=== PATIENT | female | born 1965 | race Hispanic/Latino ===

== ENCOUNTER 2016-08-06 07:44 | Emergency (ER) | payer OTHER ==
[~2016-08-06] VITALS: Ht 154.9 cm; Wt 90.9 kg
[~2016-08-06 07:44] MED LIST: CALC500T3 PO; CHOL5000 PO; DIPH1TAB PO; DOXY100C43 PO; FLUC150T3 PO
[2016-08-06 07:45] VITALS: BP 188/107; PULSE 61; RESP 18; O2SAT 96
[2016-08-06] MEDS ORDERED: 0.9% Sodium Chloride 1,000 ML IV ONE (08:03)
[2016-08-06] MEDS ORDERED: HYDROcodone-APAP 5-325 mg Tablet PO ONE (08:05)
--- NOTE | 2016-08-06 08:21 | ED.REPORT ---
HPI-Abd Pain F 40 and Over Date of Service Aug 06, 2016 ED Provider: Peter Mcmahon DO History of Present Illness: Patient is a 50 y.o. F past medical history of roseasa, otherwise healthy. Presents with one day history of abdominal pain localized to left flank that began upper left quadrant, awoke patient from sleep and has no migrated from upper left quadrant to left groin. Associated with increased urination, pain in left groin and flank increased with urination. Denies fever, chills, nausea, vomiting. Patient is perimenopausal, she states she has periods approximately every other month, LMP last month. Nursing Notes Stated Complaint: LEFT SIDE ABDOMINAL PAIN Chief Complaint: Female Abdominal Pain Nursing Notes Reviewed: Yes Allergies: Coded Allergies: Penicillins (Unverified Allergy, Severe, hives, 09/29/13) amoxicillin (Verified Allergy, Intermediate, HIVES, 01/11/16) Scheduled Calcium Carbonate (Calcium Carbonate) 500 Mg Tablet 1,000 MG PO DAILY Cholecalciferol (Vitamin D3) (Vitamin D3) 5,000 Unit Capsule 5,000 UNIT PO QW Take 5,000U weekly, and then every 15 days. Ciprofloxacin (Ciprofloxacin) 500 Mg Tablet 500 MG PO BID Doxycycline Monohyd (Doxycycline Monohyd) 100 Mg Capsule 100 MG PO DAILY Fluconazole (Fluconazole) 150 Mg Tablet 150 MG PO DAILY Metronidazole (Metronidazole) 500 Mg Tablet 500 MG PO TID Scheduled PRN Diphenoxylate/Atropine 2.5-0.025 mg (Lomotil 2.5-0.025 mg) 1 Each Tablet 2 TABLET PO QID PRN PRN For Diarrhea or Loose Stool General Time Seen by MD: 08:02 Chief Complaint Abdominal pain, Flank pain left, Inguinal pain left Hx Obtained From: Patient Sudden in Onset?: Yes Onset Occurred: 5 - 8 hours ago Symptom Duration: Since onset Location: : LLQ Radiation: : Flank left Severity: Current: Pain level 6 out of 10 Severity: Maximum: Pain level 8 out of 10 Similar Sx Previous: No Past Medical History Past Medical History Rosacea Past Surgical History Bladder sling Reports: Cholecystectomy Smoking History Former Smoker Social History Alcohol Use: Denies alcohol use Drug Use: Denies drug use Ambulatory Status Independent Review of Systems Basic Review of Systems Eyes: Vision NL, No discharge ENT: Hearing NL, No pain, No nasal congestion, No pharyngeal pain Hematologic: No bleeding, No bruising Skin: No bruising, No rash, No itch Neurologic: NL mental status, No weakness, No numbness Constitutional: Denies: Chills, Fever GI: Reports: Abdominal pain, Denies: Nausea, Vomiting Female: Reports: Dysuria, Flank pain, Urinary frequency, Denies: Hematuria, Pelvic pain, Vaginal bleeding - abnl, Vaginal discharge Complete sys rev & neg: except as marked. Physical Exam Vital Signs Vital Signs (First) Date Time Temp Pulse Resp B/P Pulse Ox O2 Delivery O2 Flow Rate FiO2 08/06/16 07:45 36.4 61 18 188/107 96 Room Air Initial VS: Reviewed Head / Eyes: Atraumatic, Normocephalic, PERRL ENT: Mucous membranes moist, Conjunctiva normal, No scleral icterus Neck: Supple, Non-tender, Full range of motion Lymphatic: No lymphadenopathy Extremities: Vascular intact, Neuro intact, No swelling, No tenderness Skin: Warm, Dry, No cyanosis Neurologic: Alert, Oriented, Nonfocal Psychiatric: Mood/affect normal, Behavior normal, Normal thought content General/Constitutional: Awake, Alert Respiratory / Chest: Breath sounds NL, Breath sounds = bilat, No respiratory distress, No rales, No rhonchi, No wheezing, No stridor Cardiovascular: Heart rate NL, Regular rhythm, Heart sounds NL, Peripheral circulation NL Abdomen: Soft, Non-tender, McBurney's non-tender, No guarding, No rebound, BS normoactive, No distention, No hernia, No palpable mass, No pulsatile mass Trauma - Abdomen Specific: Negative: Kingsley's sign, Huddleston Arias's sign Interpretation & Diagnostics Lab Results Interpretation Result Diagram: 08/06/16 0902 08/06/16 0902 Test 08/06/16 08:01 08/06/16 09:02 Urine Color Straw (YELLOW) Urine Appearance Hazy (CLEAR,HAZY) Urine pH 6.5 (5.0-8.0) Urine Specific K[place]ler 1.015 (1.003-1.035) Urine Protein Negativemg/dL (NEG,TRACE) Urine Glucose (UA) Negativemg/dL (NEGATIVE) Urine Ketones Negativemg/dL (NEGATIVE) Urine Occult Blood Negative (NEGATIVE) Urine Nitrite Negative (NEGATIVE) Urine Bilirubin Negative (NEGATIVE) Urine Urobilinogen Normalmg/dL (NORMAL) Urine Leukocyte Esterase Small (NEGATIVE) Urine RBC 0-2/hpf (0-2) Urine WBC 6-10/hpf (0-5) Urine Epithelial Cells Occasional/hpf (NONE-MOD) Urine Crystals None seen (NONE SEEN) Urine Bacteria Few/hpf (NONE-FEW) Urine Hyaline Casts None/lpf (NONE) Urine Granular Casts None seen (NONE SEEN) Urine Waxy Casts None seen (NONE SEEN) Urine Red Blood Cell Casts None seen (NONE SEEN) Urine White Blood Cell Casts None seen (NONE SEEN) Urine Mucus None seen (None Seen) Urine Trichomonas None seen (NONE SEEN) Urine Yeast None (NONE SEEN) Urinalysis Comment None Urine Culture Reflexed Indicated White Blood Count 10.8th/mm3 (3.8-10.1) Red Blood Count 4.81mil/mm3 (3.90-5.20) Hemoglobin 14.3g/dL (12.0-15.6) Hematocrit 42.0% (35.0-46.0) Mean Corpuscular Volume 87.3fL (81-100) Mean Corpuscular Hemoglobin 29.7pg (27.0-35.0) Mean Corpuscular Hemoglobin Concent 34.0% (32.0-37.0) Red Cell Distribution Width 13.5% (12.3-15.4) Platelet Count 254bil/L (150-400) Sodium Level 137mEq/L (134-144) Potassium Level 4.3mEq/L (3.5-5.2) Chloride Level 103mEq/L (97-108) Carbon Dioxide Level 21mmol/L (18-29) Blood Urea Nitrogen 10mg/dL (6-24) Creatinine 0.43mg/dL (0.57-1.00) Estimat Glomerular Filtration Rate 223mL/min (>59) Glucose Level 108mg/dL (60-99) Calcium Level 8.7mg/dL (8.5-10.1) Total Bilirubin 0.5mg/dL (0.0-1.2) Aspartate Amino Transf (AST/SGOT) 26U/L (0-50) Alanine Aminotransferase (ALT/SGPT) 16U/L (0-32) Alkaline Phosphatase 79U/L (25-150) Total Protein 7.0g/dL (6.4-8.4) Albumin 3.7g/dL (3.4-5.0) Re-Eval/Medical Decision Med Decision/Clinical Course 50 y.o. F with 8 hour onset of left sided abdominal pain that began in the epigastrum, migrated to left flank and left groin. Physical exam negative for CVA tenderness. DDx Kidney stone, UTI, Ovarian torsion, ovarian cyst, ovarian abscess, PID, pancreatitis, diverticulitis CT scan showed evidence of Diverticulitis Give 1 L bolus NS IV Ketorlac for pain PO Hydrocodone 5-[address] KUB Order UA + WBC, + leukocyte esterase, - occult blood, - RBC Order CBC WCt 10.[address] Scan showed evidence of Diverticulitis Start Ciprofloxacin (500 mg PO every 12 hours) plus metronidazole (500 mg PO every 8 hours) Patient meets criteria for discharge and outpatient treatment with close outpatient follow up. Re-Evaluation/Progress : Time of Eval: 08:36 )( Re-Eval Abdomen: Soft, No guarding, Tenderness (lower left quadrant) Patient Status: Condition unchanged, Pain improved Counseled Regarding: Diagnosis, Lab results, Need for follow-up, When/why to return to ED Discharge & Departure Primary Impression: Diverticulitis Diverticulitis site: large intestine Diverticulitis bleeding: without bleeding Diverticulitis complication: without perforation or abscess Qualified Code: K57.32 - Diverticulitis of large intestine without perforation or abscess without bleeding Additional Impression: Abdominal pain Abdominal location: left lower quadrant Qualified Code: R10.32 - Left lower quadrant pain Ruled Out: Kidney stone Disposition: Home Discharge Condition All VS Reviewed: Yes Condition: Stable Patient Instructions: Diverticulitis (DC) Additional Instructions: During you visit to [facility] Emergency Department we obtained blood work for infectious markers, hemoglobin levels, and electrolytes. We obtained high resolution imaging of your abdomen this showed signs of Diverticulitis an infection of your colon. All your lab values together with imaging confirmed the presence of this infection. At present time this infection is small enough without significant spread to be treated with antibiotic therapy as an outpatient. Your vital signs were stable and safe for discharge. We will send you home with - 10 day course of Antibiotics Ciprofloxacin (500 mg by mouth every 12 hours ) plus Flagyl (500 mg by mouth every 8 hours) - Pain medications Hydrocodone (5-325 mg by mouth every 6 hours for pain count 10) When taking Percocet pain medications DO NOT drive, DO NOT drink alcohol, DO NOT take extra acetaminophen (Tylenol). Maintain adequate hydration. Handout for Diverticulitis given All questions answered. Do not hesitate to call emergency services or your primary care physician if you experience any of the following. - High unrelenting fevers. - Uncontrolled vomiting. - Severe hypertension. - Syncope or loss of consciousness. - Chest pain or severe shortness of breath. Follow up with your primary care physician in 1 weeks time following your emergency department visit for medication checks and general well-being. Referrals: Roxanne Estes MD (PCP) Attending Statement The patient was seen and examined together with Dr. Fuentes on 08/06/16 and I have added additional information to the note above. copies to: Roxanne Estes MD, AARON J DO Aug 06, 2016 08:03 Peter Mcmahon DO Aug 06, 2016 10:18
[2016-08-06 08:23] LABS: APPEARANCE,URINE HAZY (CLEAR,HAZY); COLOR,URINE STRAW (YELLOW); PH,URINE 6.5 (5.0-8.0)
[2016-08-06 08:24] LABS: OCCULT BLOOD,URINE NEGATIVE (NEGATIVE); UROBILINOGEN,URINE NORMAL (NORMAL)
[2016-08-06 09:13] LABS: Mean Corpuscular Hemoglobin 29.7 pg (27.0-35.0); Mean Corpuscular Volume 87.3 fL (81-100)
--- NOTE | 2016-08-06 09:42 | DRSVH ---
PROCEDURE: CT KUB ([id number]) INDICATIONS: L sided abdominal pain TECHNIQUE: Noncontrast 5 mm thick sections acquired from the diaphragms to the symphysis. 5 mm thick coronal an d sagittal reformats were then performed. For radiation dose reduction, the following was used: aut omated exposure control, adjustment of mA and/or kV according to patient size. COMPARISON: None. FINDINGS: Image quality: Excellent. Lung bases: Lung bases are clear. Heart size is normal. Urinary system: Both kidneys are normal in size. No kidney stones. No hydronephrosis or perinephri c fat stranding. Both ureters appear non-dilated throughout their expected courses. Bladder wall th ickness is normal; no calcified bladder stones. Other solid organs: Liver and spleen are normal in size. Gallbladder has been recommended. Pancrea s is normal in contours. No adrenal nodules. Peritoneum and bowel: Unenhanced bowel loops are nonobstructed. There is a thickened loop of distal descending/proximal sigmoid colon demonstrating thickening and inflammatory change. Diverticula are p resent. There is no free air or pericolonic fluid abscess. Nodes and vessels: No retroperitoneal or mesenteric adenopathy by size criteria. Aorta and inferior vena cava are normal in caliber. Abdominal wall: No ventral hernias. Pelvis: No free pelvic fluid. No inguinal hernias or adenopathy. Bones: No suspicious bony lesions. No vertebral body compression fractures. IMPRESSION: 1. Focal loop of distal descending/proximal sigmoid colonic thickening with diverticula and pericolon ic inflammation. Finding is most suggestive of focal colitis secondary to diverticulitis. No divertic ular abscess is identified. 2. No nephro or ureterolithiasis. Dictated by: Kelsie Mcnair M.D. on 08/06/2016 at 9:37 Approved by: Kelsie Mcnair M.D. on 08/06/2016 at 9:41
[2016-08-06] MEDS ORDERED: CIPR-198 PO (09:57)
[2016-08-06] MEDS ORDERED: METR500T19 PO (09:57)
[2016-08-06] MEDS ORDERED: _oxyCODONE/APAP 5-325 mg Tablet PO PRN (10:00)
[2016-08-06] MEDS ORDERED: OXYC1TAB24 PO (10:20)
[2016-08-06 10:31] VITALS: PULSE 86; O2SAT 98
== END 2016-08-06 09:59 | disposition home or self-care (01) ==
LOC: SED 07:44
DX: K57.32 Diverticulitis of large intestine without perforation or abscess without bleeding (principal); Z87.891 Personal history of nicotine dependence; Z88.0 Allergy status to penicillin; Z88.1 Allergy status to other antibiotic agents
CPT/HCPCS: 36415; 74176; 80053; 81000; 85027; 87086; 87088; 96360; 96372; 99285; J7030

== ENCOUNTER 2016-09-14 14:25 | Emergency (ER) | payer OTHER ==
[~2016-09-14] VITALS: Ht 154.9 cm; Wt 87.7 kg
[~2016-09-14 14:25] MED LIST changes: +CIPR-198 PO; +METR500T19 PO; +OXYC1TAB24 PO
[2016-09-14 14:28] VITALS: BP 191/111; PULSE 73; RESP 16; O2SAT 98
--- NOTE | 2016-09-14 15:20 | ED.REPORT ---
HPI-Extremity Problem Upper Date of Service Sep 14, 2016 ED Provider: Solomon Arias PA-C Mansi is a 50-year-old female presents with a chief complaint of left shoulder pain. She states that she first noticed her pain as she awoke from a nap. She was folding laundry previous to this. This is not unusual activity for her. She reports that she has difficulty lifting her arm. Denies numbness in the extremity. chest pain, palpitations shortness of breath, cough, wheeze. Denies history of coronary artery disease, hypertension. Admits that her father of a heart attack at 48. She admits a history of smoking. Nursing Notes Stated Complaint: LEFT ARM/SHOULDER PAIN Chief Complaint: Extremity Trauma Nursing Notes Reviewed: Yes Allergies: Coded Allergies: Penicillins (Unverified Allergy, Severe, hives, 09/29/13) amoxicillin (Verified Allergy, Intermediate, HIVES, 01/11/16) Scheduled Calcium Carbonate (Calcium Carbonate) 500 Mg Tablet 1,000 MG PO DAILY Cholecalciferol (Vitamin D3) (Vitamin D3) 5,000 Unit Capsule 5,000 UNIT PO QW Take 5,000U weekly, and then every 15 days. Ciprofloxacin (Ciprofloxacin) 500 Mg Tablet 500 MG PO BID Doxycycline Monohyd (Doxycycline Monohyd) 100 Mg Capsule 100 MG PO DAILY Fluconazole (Fluconazole) 150 Mg Tablet 150 MG PO DAILY Metronidazole (Metronidazole) 500 Mg Tablet 500 MG PO TID Scheduled PRN Diphenoxylate/Atropine 2.5-0.025 mg (Lomotil 2.5-0.025 mg) 1 Each Tablet 2 TABLET PO QID PRN PRN For Diarrhea or Loose Stool oxyCODONE-Acetaminophen 5-325 mg (oxyCODONE-Acetaminophen 5-325 mg) 1 Each Tablet 1 TAB PO Q6H PRN PRN For Pain General Time Seen by MD: 14:54 Chief Complaint Shoulder injury left Past Medical History Past Medical History Rosacea Past Surgical History Bladder sling Reports: Cholecystectomy Smoking History Former Smoker Social History Alcohol Use: Denies alcohol use Drug Use: Denies drug use Ambulatory Status Independent Review of Systems Review of Systems Note: Negative unless stated otherwise in history of present illness Physical Exam General: Well appearing, well developed, well nourished, no acute distress. Left shoulder: Normal to inspection. Tender over the supraspinatus as well as the insertion of the deltoid and the anterior aspect of the humeral head. Nontender over the bicipital tendon. Reduced range of motion in flexion and extension, external rotation. Patient has difficulty actively abducting or flexing the arm. No redness, swelling, heat. Head: Atraumatic, normocephalic. Eyes: No scleral icterus or injection. No discharge. Vision grossly intact. ENT: Voice clear, hearing grossly intact. Respiratory: Regular rate and rhythm. Breath sounds present, clear to auscultation and equal bilaterally. No respiratory distress. No increased work of breathing, speaks in complete sentences. Cardiovascular: Regular rate and rhythm, without murmur, gallop or rub. No pedal edema. Gastrointestinal: Abdomen flat and non-tender without guarding or rebound. Bowel sounds normoactive. Skin: Warm and dry. Neurological: Grossly nonfocal. Psychological: Alert and oriented. Speech appropriate, linear and logical. Behavior appropriate. Initial Vital Signs Vital Signs (First) Date Time Temp Pulse Resp B/P Pulse Ox O2 Delivery O2 Flow Rate FiO2 09/14/16 14:28 36.7 73 16 191/111 98 09/14/16 16:38 Room Air Initial VS: Reviewed, Vital signs abnormal (elevated blood pressure) Interpretation & Diagnostics Lab Results Interpretation Result Diagram: 09/14/16 1544 09/14/16 1544 Test 09/14/16 15:44 White Blood Count 8.2th/mm3 (3.8-10.1) Red Blood Count 4.69mil/mm3 (3.90-5.20) Hemoglobin 13.9g/dL (12.0-15.6) Hematocrit 41.6% (35.0-46.0) Mean Corpuscular Volume 88.7fL (81-100) Mean Corpuscular Hemoglobin 29.6pg (27.0-35.0) Mean Corpuscular Hemoglobin Concent 33.4% (32.0-37.0) Red Cell Distribution Width 14.0% (12.3-15.4) Platelet Count 268bil/L (150-400) Neutrophils (%) (Auto) 66.5% (40-74) Lymphocytes (%) (Auto) 25.8% (14-46) Monocytes (%) (Auto) 6.0% (4-12) Eosinophils (%) (Auto) 1.3% (0-5) Basophils (%) (Auto) 0.2% (0-3) Sodium Level 140mEq/L (134-144) Potassium Level 3.9mEq/L (3.5-5.2) Chloride Level 101mEq/L (97-108) Carbon Dioxide Level 25mmol/L (18-29) Blood Urea Nitrogen 12mg/dL (6-24) Creatinine 0.49mg/dL (0.57-1.00) Estimat Glomerular Filtration Rate 191mL/min (>59) Glucose Level 110mg/dL (60-99) Calcium Level 9.9mg/dL (8.5-10.1) Total Bilirubin 0.4mg/dL (0.0-1.2) Aspartate Amino Transf (AST/SGOT) 21U/L (0-50) Alanine Aminotransferase (ALT/SGPT) 17U/L (0-32) Alkaline Phosphatase 118U/L (25-150) Troponin T < 0.010ug/L (0.0-0.011) Total Protein 7.8g/dL (6.4-8.4) Albumin 4.2g/dL (3.4-5.0) Hold Huddleston Top Tube Received (Received) Re-Eval/Medical Decision Med Decision/Clinical Course 50-year-old female with chief complaint of left shoulder pain. She states that began when she awoke from a nap. She admits activities such as throwing straps over the top of the truck and fold laundry in the preceding day. Denies chest pain, palpitations, shortness of breath, wheezing, cough, sweats. Symptoms have been present for more than 24 hours. Physical reveals reduced range of motion in the left shoulder. Elbow is normal. Neck is normal. Sensation, circulation and reflexes intact and left arm. EKG reveals nonspecific changes in inferior T waves. Troponin normal. CBC and CMP normal. I believe this is soft tissue injury as opposed to a cardiac event, fracture, dislocation or neck injury. Advised rest, ice, [id number] analgesia. Provided a small amount of cyclobenzaprine with precautions. Advised primary care follow-up in one week if not resolved provided emergency return precautions. Patient understands and agrees with the plan. Discharge & Departure Impression: Primary Impression: Left shoulder pain Chronicity: acute Qualified Code: M25.512 - Pain in left shoulder Additional Impression: Elevated blood pressure Disposition: Home Discharge Condition All VS Reviewed: Yes Condition: Stable Additional Instructions: Evaluation for shoulder pain in the emergency department. History physical, EKG and blood tests are reassuring this is not caused by her heart. Likewise is unlikely this is a fracture or dislocation. I think this is unlikely to be a pinched nerve. This is most likely a soft tissue injury to your shoulder. I believe you are stable and safe to be discharged home. Rest as much as possible. Ice the affected area 3 times a day for 10 minutes at a time. The pain is best treated with 600 mg of ibuprofen (Advil, Motrin) every 6 hours, or 1000 mg of acetaminophen (Tylenol) every 6 hours. These drugs can be taken at the same time for more severe pain. I will also write a prescription for a small amount of cyclobenzaprine, a muscle relaxant. Please use this primarily for sleeping at night. Do not drive or drink alcohol in 4 hours of taking this medication. Do not take the pain medication you have at home with either the cyclobenzaprine or the Tylenol. Follow-up with her primary care provider in a week if symptoms have not resolved. Return to emergency department for any new or worsening symptoms including pain in her chest, sweating, nausea or vomiting, numbness or weakness in the limb. I also note that your blood pressure was elevated during your visit to the emergency department. Please discuss this with your primary care provider. Referrals: Roxanne Estes MD (PCP) EDSupervising Provider for APC: Ree Wang MD copies to: Roxanne Estes MD, Seth PA-C Sep 14, 2016 15:20
[2016-09-14 15:50] LABS: BASOPHILS % (AUTO) 0.2 % (0-3); EOSINOPHILS % (AUTO) 1.3 % (0-5); Mean Corpuscular Hemoglobin 29.6 pg (27.0-35.0); Mean Corpuscular Volume 88.7 fL (81-100); NEUTROPHILS % (AUTO) 66.5 % (40-74); Platelet Count 268 bil/L (150-400)
[2016-09-14 16:18] LABS: TROPONIN T < 0.010 ug/L (0.0-0.011)
[2016-09-14 16:38] VITALS: BP 215/126; PULSE 80; RESP 18; O2SAT 97
[2016-09-14 16:39] VITALS: BP 215/126; PULSE 80; RESP 18; O2SAT 97
== END 2016-09-14 16:40 | disposition home or self-care (01) ==
LOC: SED 14:25
DX: M25.512 Pain in left shoulder (principal); X50.0XXA Overexertion from strenuous movement or load, initial encounter; Y93.89 Activity, other specified; Y92.89 Other specified places as the place of occurrence of the external cause; Y99.8 Other external cause status; R03.0 Elevated blood-pressure reading, without diagnosis of hypertension; Z87.891 Personal history of nicotine dependence; Z88.0 Allergy status to penicillin; Z88.1 Allergy status to other antibiotic agents
CPT/HCPCS: 36415; 80053; 84484; 85025; 93005; 96374; 99285; J1885

== ENCOUNTER 2016-10-30 01:26 | Day surgery (SDC) | payer OTHER ==
[~2016-10-30] VITALS: Ht 154.9 cm; Wt 81.0 kg
[2016-10-30] VITALS (7 sets, daily range): BP systolic 175–222; BP diastolic 89–120; PULSE 56–73; RESP 14–16; O2SAT 96–100
[2016-10-30] MEDS ORDERED: Sodium Chloride LOK Flush 10 mL Syringe IV PRN (09:15)
[2016-10-30] MEDS ORDERED: 0.9% Sodium Chloride 1,000 ML IV PRN (09:15)
[2016-10-30] MEDS ORDERED: fentaNYL-PF 50 mCg/mL 2 mL Inj IVPUSH PRN (09:15)
--- NOTE | 2016-10-30 23:00 | ENDO ---
[address] [address] ENDOSCOPY PROCEDURE PATIENT: ARMAND LOPEZ : 1965 MR#: [id number] ADMIT: 10/30/2016 JOB ID: [id number] DATE: 10/30/2016 PRIMARY CARE PHYSICIAN: Roxanne Estes MD PROCEDURE: Colonoscopy with cold forceps polypectomy. INDICATIONS: A 51-year-old female who reports for colon cancer screening. EQUIPMENT: PCF H 190 L. SEDATION: 4 mg Versed and 100 mcg fentanyl. COMPLICATIONS: None identified. BOWEL PREPARATION: Fair, adequate exam. PROCEDURE IN DETAIL: After the risks and benefits were explained, written and verbal informed consent was obtained. The patient was brought into the endoscopy suite and placed into the left lateral decubitus position. Sedation was achieved using the above stated medications with the addition of oxygen via nasal cannula. A digital rectal examination was accomplished. No significant pathology appreciated. The scope was introduced into the rectum and advanced under direct visualization to the level of the cecum, as identified by the appendiceal orifice and ileocecal valve. The scope was slowly withdrawn to carefully examine the mucosa for any defects or lesions. Multiple direct views were made through the dentate line for exclusion of pathology. The colon was decompressed. The scope removed from the patient who tolerated the procedure well. FINDINGS: No significant mass lesions. There was a diminutive polyp in the descending colon removed with cold forceps. The patient had diverticulosis throughout both the left and right colon. Otherwise, no significant mucosal pathology appreciated. The terminal ileum was even interrogated and appeared normal. Mild internal hemorrhoids were noted on direct views. ENDOSCOPIC DIAGNOSES: 1. Diminutive colon polyp. 2. Diverticulosis. 3. Mild hemorrhoids. RECOMMENDATIONS: 1. Await histopathology. 2. If this polyp is adenomatous, repeat colonoscopy five years. Otherwise repeat exam in 10 years would be appropriate.
--- NOTE | 2016-11-01 17:16 | PATH ---
SURGICAL PATHOLOGY Attending Physician:Chavo Fowler CASE STATUS: Signed Out PATIENT NAME: ARMAND LOPEZ PID: [id number] : 1965 DATE COLLECTED:10/30/2016 00:00 SPECIMEN: Colon, Biopsy CLINICAL HISTORY: POLYP 1). COLON POLYP FINAL DIAGNOSIS: 1.COLON, POLYP, BIOPSY: COLONIC MUCOSA WITH A BENIGN LYMPHOID AGGREGATE. Negative for dysplasia and malignancy. ICD10 code K63.5 GROSS DESCRIPTION: The specimen is received in one formalin filled container labeled with the patient's name, sublabeled "colon polyp" and consists of a 0.2 x 0.2 x 0.2 CM portion of tissue which is entirely submitted in one cassette. 10/31/2016 DAC MICRO DESCRIPTION: See diagnosis. ICD-9 CODES: CPT CODES: 1: 70277 Electronically Signed Out Janki Albert MD [facility] Pathology [facility] [address], [place] [address] Technical component performed at [facility], [facility] [address], [place], [address]
== END 2016-10-30 23:59 | disposition home or self-care (01) ==
LOC: END 01:26
PROVIDERS: ATTEND Internal Medicine Gastroenterology
DX: Z12.11 Encounter for screening for malignant neoplasm of colon (principal); K63.5 Polyp of colon; K64.9 Unspecified hemorrhoids; K57.30 Diverticulosis of large intestine without perforation or abscess without bleeding
CPT/HCPCS: 45380; 99152; 99153; J2250; J3010; J7030